=== PATIENT | male | born 1960 | race Caucasian/White ===

== ENCOUNTER 2016-11-21 19:12 | Emergency (ER) | payer SELFPAY ==
[~2016-11-21] VITALS: Ht 175.3 cm; Wt 68.0 kg
[2016-11-21] MEDS ORDERED: LORazepam Inj 2mg/ml 1ml IM ONE (19:30)
[2016-11-21] MEDS ORDERED: DiphenhydrAMINE 50mg/ml Inj IM ONE (19:30)
[2016-11-21] MEDS ORDERED: Haloperidol 5mg/ml Inj IM ONE (19:30)
[2016-11-21 19:35] VITALS: BP 160/99
[2016-11-21 20:40] LABS: ACETAMINOPHEN < 10 ug/mL (10-30); ALANINE AMINOTRANSFERASE 31 U/L (3-41); ALBUMIN/GLOBULIN RATIO 0.9 (1.0-2.7); ALCOHOL < 10 mg/dL; ANION GAP 16 (5-15); ASPARTATE AMINO TRANSFERASE 37 U/L (5-40); CALCIUM 9.1 mg/dL (8.6-10.2); CARBON DIOXIDE 26 mEQ/L (20-30); CHLORIDE 100 mEQ/L (98-107); GLOMERULAR FILTRATION RATE > 60 mL/min (>60); HEMOLYSIS 2; POTASSIUM 3.6 mEQ/L (3.4-4.9); SODIUM 142 mEQ/L (135-145); TOTAL PROTEIN 7.3 g/dL (6.6-8.7)
[2016-11-21 20:44] LABS: BASOPHILS % (AUTO) 1.6 % (0.0-2.0); LYMPHOCYTES % (AUTO) 24.9 % (20.0-45.0); MEAN CORPUSCULAR HEMOGLOBIN 29.5 PG (27.0-31.0); MEAN CORPUSCULAR HGB CONC 31.8 G/DL (32.0-36.0); MEAN CORPUSCULAR VOLUME 93 FL (80-99); MEAN PLATELET VOLUME 5.4 FL (6.5-10.1); MONOCYTES % (AUTO) 11.9 % (1.0-10.0); NEUTROPHILS % (AUTO) 59.6 % (45.0-75.0); PLATELET COUNT 239 K/UL (150-450); RED BLOOD COUNT 4.03 M/UL (4.70-6.10); WHITE BLOOD COUNT 4.8 K/UL (4.8-10.8)
--- NOTE | 2016-11-21 20:58 | Emergency Room Report ---
History of Present Illness General Chief Complaint: Behavioral Complaint Source: Patient, EMS Present Illness HPI [id number] BIBEMS with [employer] custody with 5150 hold. Patient currently incarcerated after public lewdness, disturbance. Was repeatedly banging head on wall in group home, spitting and kicking at other prisoners staff. Repeatedly stating he is talking to god. Known schizophrenic history. Not compliant with medication. Patient not providing additional HPI at this time. Allergies: Coded Allergies: UNABLE TO ASSESS (Unverified , 11/21/16) Patient History Past Medical History: psych hx, HIV Past Surgical History: unable to obtain Pertinent Family History: unable to obtain Nursing Documentation-[facility] Past Medical History: Deferred Review of Systems All Other Systems: limited - unable to ascertain Physical Exam Sp02 EP Interpretation: reviewed, abnormal General Appearance: normal inspection, alert, GCS 15, non-toxic, other - Yelling loudly, cursing, spitting Head: normocephalic, atraumatic Eyes: bilateral eye EOMI, bilateral eye PERRL ENT: normal ENT inspection, hearing grossly normal, normal voice Neck: normal inspection, full range of motion, supple, no bony tend Respiratory: normal inspection, lungs clear, normal breath sounds, no respiratory distress, no retraction, no wheezing Cardiovascular #1: regular rate, rhythm, no edema Gastrointestinal: normal inspection, normal bowel sounds, non tender, soft, no guarding, no hernia Genitourinary: no CVA tenderness Musculoskeletal: normal inspection, back normal, normal range of motion, Manuelito' s Sign negative Neurologic: normal inspection, alert, responsive, service center supervisor III-XII nml as tested, speech normal Psychiatric: normal inspection, mood/affect normal, other - paranoid thought process, delusions Skin: normal inspection, normal color, no rash Lymphatic: normal inspection Medical Decision Making Diagnostic Impression: Primary Impression: Behavioral change ER Course Likely schizophrenic. VSS. Afebrile. On 5150 hold Required sedation d/t danger to self, others Labs: No leuks. H&H stable. Mild CK elevation Tylenol, ASA levels negative Has not provided Urine for Utox yet Medically cleared. Pending PET Endorsed to Dr Cazares to followup placement Status: improved Disposition: XFER TO PSYCH HOSP/UNIT Referrals: NOT CHOSEN IPA/,REFERRING (PCP) JOSE MIGUEL ALFARO M.D. Nov 21, 2016 20:58
[2016-11-21 21:36] VITALS: BP 171/95
[2016-11-21 23:45] VITALS: BP 152/82
[2016-11-22 02:10] VITALS: BP 137/62
[2016-11-22 04:00] VITALS: BP 114/48
[2016-11-22 05:49] VITALS: BP 144/72
[2016-11-22 07:15] VITALS: BP 131/65
[2016-11-22 10:25] VITALS: BP 126/75
[2016-11-22 11:02] VITALS: BP 126/75
--- NOTE | 2016-11-22 20:13 | Cardiology Report ---
APPROVED REPORT EKG Measurement Heart [id number] Normal sinus rhythm Anterior infarct, age undetermined Abnormal ECG
== END 2016-11-22 11:21 ==
LOC: EDBD 19:12 → EMR 19:27
DX: F91.9 Conduct disorder, unspecified (principal)
CPT/HCPCS: 36415; 80053; 80300; 82550; 85025; 93005; 96372; 99285; G0480; J1200; J1630; 80329

== ENCOUNTER 2018-03-19 10:38 | Emergency (ER) | payer MEDICAID ==
[~2018-03-19] VITALS: Ht 175.3 cm; Wt 72.6 kg
[2018-03-19 11:07] LABS: BASOPHILS % (AUTO) 1.2 % (0.0-2.0); EOSINOPHILS % (AUTO) 0.5 % (0.0-3.0); HEMATOCRIT 43.5 % (42.0-52.0); HEMOGLOBIN 14.8 G/DL (14.2-18.0); LYMPHOCYTES % (AUTO) 19.1 % (20.0-45.0); MEAN CORPUSCULAR VOLUME 93 FL (80-99); MONOCYTES % (AUTO) 10.3 % (1.0-10.0); NEUTROPHILS % (AUTO) 68.9 % (45.0-75.0); PLATELET COUNT 295 K/UL (150-450); RED BLOOD COUNT 4.69 M/UL (4.70-6.10); RED CELL DISTRIBUTION WIDTH 10.4 % (11.6-14.8)
[2018-03-19 11:28] LABS: ANION GAP 12 mmol/L (5-15); BLOOD UREA NITROGEN 15 mg/dL (7-18); CARBON DIOXIDE 24 MMOL/L (21-32); CHLORIDE 103 MMOL/L (98-107); CREATININE 0.8 MG/DL (0.55-1.30); POTASSIUM 3.5 MMOL/L (3.5-5.1); SODIUM 139 MMOL/L (136-145)
[2018-03-19 11:43] LABS: ALANINE AMINOTRANSFERASE 77 U/L (12-78); ALBUMIN 3.4 G/DL (3.4-5.0); ALBUMIN/GLOBULIN RATIO 0.8 (1.0-2.7); ALKALINE PHOSPHATASE 100 U/L (46-116); ASPARTATE AMINO TRANSFERASE 55 U/L (15-37); BILIRUBIN,TOTAL 0.6 MG/DL (0.2-1.0)
[2018-03-19 12:34] VITALS: BP 162/93
--- NOTE | 2018-03-19 14:07 | Emergency Room Report ---
History of Present Illness General Chief Complaint: Behavioral Complaint Source: Patient, EMS Present Illness HPI This patient is brought in by EMS for bizarre behavior. Apparently they were called by a bystander who notes that this patient was acting bizarrely and sweeping but did not have a broom. The patient himself has no specific complaints. He did say that he was very tired. Allergies: Coded Allergies: No Known Allergies (Unverified , 03/19/18) UNABLE TO ASSESS (Unverified , 11/21/16) Patient History Past Medical History: see triage record, psych hx Social History: Reports: drug use; Denies: smoking, alcohol use Reviewed Nursing Documentation: PMH: Agreed; PSxH: Agreed Nursing Documentation-PMH Past Medical History: No History, Except For History Of Psychiatric Problem: Yes - ADHD Review of Systems All Other Systems: negative except mentioned in HPI Physical Exam Vital Signs Date Time Temp Pulse Resp B/P (MAP) Pulse Ox O2 Delivery O2 Flow Rate FiO2 03/19/18 10:24 98.4 86 16 132/70 98 Room Air 98.4 Sp02 EP Interpretation: reviewed, normal General Appearance: no apparent distress, alert, GCS 15, non-toxic Head: normocephalic, atraumatic Eyes: bilateral eye normal inspection, bilateral eye PERRL ENT: hearing grossly normal, normal pharynx, no angioedema, normal voice Neck: full range of motion, supple/symm/no masses Respiratory: chest non-tender, lungs clear, normal breath sounds, speaking full sentences Cardiovascular #1: regular rate, rhythm, no edema Gastrointestinal: normal bowel sounds, non tender, soft, non-distended, no guarding, no rebound Rectal: deferred Musculoskeletal: back normal, gait/station normal, normal range of motion, non- tender Neurologic: alert, oriented x3, responsive, motor strength/tone normal, sensory intact, speech normal Psychiatric: judgement/insight normal, memory normal, no suicidal/homicidal ideation, other - Talking to self Skin: normal color, no rash, warm/dry, well hydrated Medical Decision Making Diagnostic Impression: Primary Impression: Amphetamine abuse ER Course This patient per review of his medical record does have a history of schizophrenia. He appears homeless. He asked for a meal. He ate lunch here. He did speak to himself at times but otherwise is not aggressive or disruptive. Laboratory workup to include CBC, CMP were unremarkable. Drug screen was positive for amphetamines which is likely contributing to the patient's behavioral disorder. He could also have schizophrenia. Regardless, the patient is nontoxic and well-appearing. He is calm and not suicidal or homicidal. He was discharged after he ate lunch. Laboratory Tests Test 03/19/18 10:48 03/19/18 12:05 White Blood Count 4.0 K/UL (4.8-10.8) L Red Blood Count 4.69 M/UL (4.70-6.10) L Hemoglobin 14.8 G/DL (14.2-18.0) Hematocrit 43.5 % (42.0-52.0) Mean Corpuscular Volume 93 FL (80-99) Mean Corpuscular Hemoglobin 31.5 PG (27.0-31.0) H Mean Corpuscular Hemoglobin Concent 33.9 G/DL (32.0-36.0) Red Cell Distribution Width 10.4 % (11.6-14.8) L Platelet Count 295 K/UL (150-450) Mean Platelet Volume 5.9 FL (6.5-10.1) L Neutrophils (%) (Auto) 68.9 % (45.0-75.0) Lymphocytes (%) (Auto) 19.1 % (20.0-45.0) L Monocytes (%) (Auto) 10.3 % (1.0-10.0) H Eosinophils (%) (Auto) 0.5 % (0.0-3.0) Basophils (%) (Auto) 1.2 % (0.0-2.0) Sodium Level 139 MMOL/L (136-145) Potassium Level 3.5 MMOL/L (3.5-5.1) Chloride Level 103 MMOL/L (98-107) Carbon Dioxide Level 24 MMOL/L (21-32) Anion Gap 12 mmol/L (5-15) Blood Urea Nitrogen 15 mg/dL (7-18) Creatinine 0.8 MG/DL (0.55-1.30) Estimate Glomerular Filtration Rate > 60 mL/min (>60) Glucose Level 101 MG/DL (74-106) Calcium Level 9.0 MG/DL (8.5-10.1) Total Bilirubin 0.6 MG/DL (0.2-1.0) Aspartate Amino Transferase (AST) 55 U/L (15-37) H Alanine Aminotransferase (ALT) 77 U/L (12-78) Alkaline Phosphatase 100 U/L (46-116) Total Protein 7.5 G/DL (6.4-8.2) Albumin 3.4 G/DL (3.4-5.0) Globulin 4.1 g/dL Albumin/Globulin Ratio 0.8 (1.0-2.7) L Thyroid Stimulating Hormone (TSH) 0.847 uiU/mL (0.358-3.740) Serum Alcohol < 3 mg/dL Urine Opiates Screen Negative (NEGATIVE) Urine Barbiturates Screen Negative (NEGATIVE) Phencyclidine (PCP) Screen Negative (NEGATIVE) Urine Amphetamines Screen Positive (NEGATIVE) H Urine Benzodiazepines Screen Negative (NEGATIVE) Urine Cocaine Screen Negative (NEGATIVE) Urine Marijuana (THC) Screen Negative (NEGATIVE) Last Vital Signs Date Time Temp Pulse Resp B/P (MAP) Pulse Ox O2 Delivery O2 Flow Rate FiO2 03/19/18 12:34 97.5 78 16 162/93 100 Room Air 97.5 Status: improved Disposition: HOME, SELF-CARE Condition: Improved Referrals: NOT CHOSEN IPA/,REFERRING (PCP) Patient Instructions: Self-Destructive Behavior Zoya Avalos DO Mar 19, 2018 14:07
[2018-03-19 14:12] VITALS: BP 141/88
== END 2018-03-19 14:14 | disposition home or self-care (01) ==
LOC: EDBD 10:38 → EMR 11:15
DX: F15.10 Other stimulant abuse, uncomplicated (principal)
CPT/HCPCS: 36415; 80053; 80307; 80329; 84443; 85025; 96360; 99284